=== PATIENT | female | born 1975 | race Caucasian/White ===

== ENCOUNTER → 2024-01-08 09:00 | Outpatient (REF) | payer BC, SELFPAY ==
[2024-01-08 16:36] LABS: HIV Combo Negative (Negative)
[2024-01-08 17:23] LABS: Hepatitis B Surface Antigen Negative (Negative)
[2024-01-08 19:14] LABS: Hepatitis B Surface Antibody Negative; Hepatitis C Antibody Negative (Negative)
== END ==
LOC: REG 09:00
PROVIDERS: ATTENDING PHYSICIAN Nurse Practitioner Adult Health; FAMILY PHYSICIAN Physician Assistant Medical
DX: Z57.8 Occupational exposure to other risk factors (principal)
CPT/HCPCS: 36415; 86706; 86803; 87340; 87389

== ENCOUNTER → 2024-02-24 12:11 | Outpatient (REF) | payer OTHER, SELFPAY ==
[2024-02-24 15:39] LABS: HIV Combo Negative (Negative)
[2024-02-24 15:48] LABS: Hepatitis C Antibody Negative (Negative)
[2024-02-24 16:47] LABS: Hepatitis B Surface Antibody Positive
== END ==
LOC: REG 12:11
PROVIDERS: ATTENDING PHYSICIAN Nurse Practitioner Family; FAMILY PHYSICIAN Physician Assistant Medical
DX: Z23 Encounter for immunization (principal)
CPT/HCPCS: 36415; 86706; 86803; 87389; 87522

== ENCOUNTER → 2024-03-01 09:50 | Outpatient (REF) | payer BC, SELFPAY ==
[2024-03-01 11:13] LABS: % Basophils 0.4 % (0-2); % Eosinophils 0.8 % (0-6); % Immature Granulocytes 0.4 % (0-0.5); % Lymphocytes 23.3 % (20.5-51.1); % Monocytes 8.2 % (1.7-9.3); % Neutrophils 66.9 % (42.2-75.2); Absolute Lymphocytes 1.1 10^3/uL (1.2-3.4); Absolute Monocytes 0.4 10^3/uL (0.1-0.6); Absolute Neutrophils 3.2 10^3/uL (1.4-6.5); Hematocrit 34.7 % (37.0-47.0); Hemoglobin 11.5 g/dL (12.0-16.0); Mean Corp Hgb Conc. 33.1 g/dL (33.0-37.0); Mean Corpuscular Hgb 29.3 pg (27.0-31.0); Mean Corpuscular Volume 88.5 fL (81.0-99.0); Mean Platelet Volume 10.7 fL (7.4-10.4); Nucleated Red Blood Cells % 0 %; Platelet Count 237 10^3/uL (130-400); Red Blood Cell Count 3.92 10^6/uL (4.20-5.40); Red Cell Dist. Width 12.4 % (11.5-14.5); White Blood Cell Count 4.8 10^3/uL (4.8-10.8)
[2024-03-01 11:58] LABS: ALT (SGPT) 25 U/L (0-35); AST (SGOT) 27 U/L (14-36); Albumin 4.4 g/dl (3.5-5.0); Alkaline Phosphatase 59 U/L (38-126); Blood Urea Nitrogen 13 mg/dl (7-17); Calcium 9.3 mg/dl (8.4-10.2); Carbon Dioxide 26 mmol/L (22-30); Chloride 103 mmol/L (98-107); Glucose 91 mg/dl (70-99); HDL Cholesterol 84 mg/dl; LDL Cholesterol, Calculated 94 mg/dl; Potassium 4.2 mmol/L (3.5-5.1); Sodium 142 mmol/L (135-145); Total Bilirubin 0.7 mg/dl (0.2-1.3); Total Cholesterol 194 mg/dl (50-199); Total Protein 7.2 g/dl (6.3-8.2); Triglyceride 83 mg/dl (10-149); Very Low Density Lipoprotein 16 mg/dl (0-30); eGFR > 60.00
[2024-03-01 12:08] LABS: TSH Reflex To Free T4 1.32 uIU/ml (0.47-4.68)
== END ==
LOC: REG 09:50
PROVIDERS: ATTENDING PHYSICIAN Physician Assistant Medical
DX: Z00.01 Encounter for general adult medical examination with abnormal findings (principal); Z13.1 Encounter for screening for diabetes mellitus; Z13.220 Encounter for screening for lipoid disorders; Z13.0 Encounter for screening for diseases of the blood and blood-forming organs and certain disorders involving the immune mechanism; Z13.29 Encounter for screening for other suspected endocrine disorder
CPT/HCPCS: 36415; 80053; 80061; 84443; 85025

== ENCOUNTER → 2024-04-22 14:17 | Outpatient (REF) | payer OTHER, SELFPAY ==
[2024-04-22 16:00] LABS: ALT (SGPT) 21 U/L (0-35); AST (SGOT) 24 U/L (14-36); Albumin 4.5 g/dl (3.5-5.0); Alkaline Phosphatase 52 U/L (38-126); Direct Bilirubin 0.1 mg/dl (0.0-0.4); Total Bilirubin 0.5 mg/dl (0.2-1.3); Total Protein 7.3 g/dl (6.3-8.2)
[2024-04-22 18:19] LABS: Hepatitis B Surface Antigen Negative (Negative)
[2024-04-22 18:37] LABS: Hepatitis B Core Ab, Total Negative (Negative); Hepatitis C Antibody Negative (Negative)
[2024-04-22 19:33] LABS: Hepatitis B Surface Antibody Positive
[2024-04-23 15:09] LABS: HIV Combo Negative (Negative)
== END ==
LOC: OHS 14:17
PROVIDERS: ATTENDING PHYSICIAN Nurse Practitioner Family
DX: Z23 Encounter for immunization (principal)
CPT/HCPCS: 36415; 80076; 86704; 86706; 86803; 87340; 87389; 87522

== ENCOUNTER → 2024-07-16 10:00 | Outpatient (REF) | payer OTHER, SELFPAY ==
[2024-07-16 12:38] LABS: ALT (SGPT) 17 U/L (0-35); AST (SGOT) 20 U/L (14-36); Albumin 4.6 g/dl (3.5-5.0); Alkaline Phosphatase 52 U/L (38-126); Direct Bilirubin 0.3 mg/dl (0.0-0.4); Total Bilirubin 0.8 mg/dl (0.2-1.3); Total Protein 7.1 g/dl (6.3-8.2)
[2024-07-16 13:19] LABS: Hepatitis B Surface Antigen Negative (Negative)
[2024-07-16 13:37] LABS: Hepatitis B Core Ab, Total Negative (Negative)
[2024-07-16 14:45] LABS: HIV Combo Negative (Negative)
[2024-07-16 15:01] LABS: Hepatitis B Surface Antibody Positive; Hepatitis C Antibody Negative (Negative)
[2024-07-18 22:25] LABS: HCV Quant by NAAT IU/mL Not Detected; HCV Quant by NAAT Interp Not Detected (Not Detected); HCV Quant by NAAT Log IU/mL Not Detected log IU/mL
== END ==
LOC: HWLAB 10:00
PROVIDERS: ATTENDING PHYSICIAN Nurse Practitioner Family; FAMILY PHYSICIAN Physician Assistant Medical
DX: Z23 Encounter for immunization (principal)
CPT/HCPCS: 36415; 80076; 86704; 86706; 86803; 87340; 87389; 87522

== ENCOUNTER 2024-10-17 13:13 | Emergency (ER) | payer BC, SELFPAY ==
[2024-10-17 13:25] VITALS: BP 178/96
--- NOTE | 2024-10-17 14:44 | ED.GENMED ---
History of Present Illness
General
Chief Complaint: Skin Problem
Time Seen by Provider: 10/17/24 13:55
History of Present Illness
History of Present Illness:
49-year-old female presents the emergency department for evaluation of redness, warmth, and tenderness to the right calf beginning yesterday. States she was in [place] yesterday concerned she was bitten by something. Denies any known tick bites.
No fevers or chills.
Review of Systems
Review of Systems
Allergies reviewed?: Yes
All Other Systems: ROS reviewed and negative except as documented in HPI and ROS
Phy Exam
Physical Exam
Physical Exam:
GEN: Well appearing, NAD, WDWN
HEENT: Oral mucosa moist, no scleral icterus
Cardiac: Regular rate
Lung: No respiratory distress, no tachypnea
MSK: No gross deformity or injuries
Skin: Good color, no pallor or jaundice, 5 cm to 6 cm circular area of redness and warmth with induration to the right calf, no open wounds
Neuro: AO x3, moves all extremities freely
Psych: Calm, cooperative
Course
Vital Signs
Initial and Last Documented VS:
Initial Vital Signs
Temp Pulse Resp BP Pulse Ox
98.4 F 71 18 178/96 99
10/17/24 13:25 10/17/24 13:25 10/17/24 13:25 10/17/24 13:25 10/17/24 13:25
Last Documented Vital Signs
Temp Pulse Resp BP Pulse Ox
98.4 F 71 18 178/96 99
10/17/24 13:25 10/17/24 13:25 10/17/24 13:25 10/17/24 13:25 10/17/24 13:25
MDM/Problems Addressed
MDM/Problems Addressed:
Likely developing cellulitis, no reported tick bite warranting treatment for Lyme disease, no palpable abscess warranting drainage, will cover w/ abx
*Critical Care Note
Total Time (30-74mins, 75-104mins- exclusive of procedures): Not Applicable
ED Attending Note
-
Portions of this chart may have been created with voice recognition software.� Occasional wrong word or��sound alike� substitutions may have occurred due to the inherent limitations of voice recognition software.
Discharge Plan
Departure
Patient Disposition: Home (Routine Discharge)
Date of Disposition: 10/17/24
Time of Disposition: 14:47
Patient with high blood pressure during this ER visit?: No
Discharge Problem:
Cellulitis
Instructions: Cellulitis (Skin Infection), Adult (DC)
Prescriptions:
New
cephalexin 500 mg capsule
500 mg PO QID 7 Days Qty: 28 0RF
Referrals:
Caro Najera PA-C [Family Provider] -
Interventions
Interventions:
*Risk Screen - Suicide Last Done: 10/17/24 13:25
*General Assessment Last Done: 10/17/24 13:25
*Neglect/Abuse Screening Last Done: 10/17/24 13:25
*Nursing Disposition Last Done: 10/17/24 14:57
ED-Skin Assessment Last Done: 10/17/24 14:56
Discharge Date and Time
Discharge Date/Time: 10/17/24 14:58
Print Language: [id number]
== END 2024-10-17 14:58 | disposition home or self-care (01) ==
LOC: EMR 13:13
PROVIDERS: EMERGENCY PHYSICIAN Emergency Medicine; FAMILY PHYSICIAN Physician Assistant Medical
DX: L03.115 Cellulitis of right lower limb (principal)
CPT/HCPCS: 99283

== ENCOUNTER → 2025-02-17 14:26 | Outpatient (REF) | payer BC, SELFPAY | LOC: CPAP 14:26 | PROVIDERS: ATTENDING PHYSICIAN Nurse Practitioner Adult Health | DX: N87.9 Dysplasia of cervix uteri, unspecified (principal); Z01.419 Encounter for gynecological examination (general) (routine) without abnormal findings | CPT/HCPCS: 87624 ==

== ENCOUNTER → 2025-02-17 14:26 | Outpatient (REF) | payer BC, SELFPAY | LOC: CLAB 14:26 | PROVIDERS: ATTENDING PHYSICIAN Nurse Practitioner Adult Health | DX: N87.9 Dysplasia of cervix uteri, unspecified (principal) | CPT/HCPCS: 88305 ==